=== PATIENT | male | born 1955 | race Caucasian/White ===

== ENCOUNTER 2024-04-27 12:16 | Emergency (ER) | payer MEDICARE, BC ==
--- NOTE | 2024-04-27 12:41 | ED ---
Recheck HPI - General Source: patient, RN notes reviewed Mode of arrival: ambulatory Limitations: no limitations <Chasity Weir - Last Filed: 04/27/24 12:39> <Eloise Boles - Last Filed: 04/28/24 15:54> - General Chief Complaint: Recheck/Abnormal Lab/Rx Stated Complaint: High Blood Sugar Time Seen by Provider: 04/27/24 12:39 - History of Present Illness Initial Comments: Quick Note: This is a 69-year-old male who presents to the emergency department for hyperglycemia. Patient has a history of type 2 diabetes. Does not take insulin. He states that he checks his blood sugar at home on occasions, and when he checked it this morning it was in the 500s. He went to urgent care initially and was advised to come to the emergency department for further evaluation. Denies any history of DKA. Denies any coughing, congestion, chest pain, shortness of breath, nausea, or vomiting. (Chasity Weir) Patient is a 69-year-old woman past medical history type 2 diabetes on metformin and glipizide, hyperglycemia. Patient does not take insulin. He recently moved from [place]. Saw his PCP few months ago without issue. This morning checked his blood glucose and it read "high". Went to local urgent care where it read in the 500s. Was sent to the emergency department for further evaluation. Patient denies any chest pain, shortness of breath, fevers, chills, nausea, vomiting, abdominal pain, dizziness, lightheadedness, palpitations. He does state that over the last week he has been eating more fruit than usual and ate a lot of fruit this morning. (Eloise Boles) - Related Data Home Medications Medication Instructions Recorded Confirmed Aspirin EC [Ecotrin Low Dose] 81 mg PO DAILY 04/27/24 04/27/24 Cholecalciferol [Vitamin D3 (25 25 mcg PO DAILY 04/27/24 04/27/24 Mcg = 1000 Iu)] Cyanocobalamin (Vitamin B-12) 1,000 mcg PO DAILY 04/27/24 04/27/24 [Vitamin B-12] Diclofenac Sodium [Voltaren] 75 mg PO BID 04/27/24 04/27/24 Garlic Extract [Garlic] 400 mg PO DAILY 04/27/24 04/27/24 Rosuvastatin Calcium [Crestor] 5 mg PO DAILY 04/27/24 04/27/24 Umeclidinium Brm/Vilanterol Tr 1 puff INHALATION RT-DAILY 04/27/24 04/27/24 [Anoro Ellipta 62.5-25 Mcg INH] glipiZIDE [Glucotrol] 10 mg PO BID 04/27/24 04/27/24 lisinopriL [Zestril] 2.5 mg PO DAILY 04/27/24 04/27/24 metFORMIN HCL [Glucophage] 1,000 mg PO BID 04/27/24 04/27/24 Allergies Allergy/AdvReac Type Severity Reaction Status Date / Time No Known Allergies Allergy Verified 04/27/24 15:02 Review of Systems ROS Other: All systems not noted in ROS Statement are negative. <Chasity Weir - Last Filed: 04/27/24 12:39> ROS Statement: Those systems with pertinent positive or pertinent negative responses have been documented in the HPI. General Exam <Chasity Weir - Last Filed: 04/27/24 12:39> <Eloise Boles - Last Filed: 04/28/24 15:54> - General Exam Comments Initial Comments: Visual Physical Exam Vital signs reviewed General: Well-appearing, nontoxic, no acute distress. Head: Normocephalic, atraumatic Eyes: PERRLA, EOMI ENT: Airway patent Chest: Nonlabored breathing Skin: No visual rash, normal skin tone Neuro: Alert and oriented 3 Musculoskeletal: No gross abnormalities (Chasity Weir) PE: CONSTITUTIONAL: No apparent distress, well appearing SKIN: Warm, dry, no jaundice, hives or petechiae EYES: Pupils are equally round, extraocular movements intact without nystagmus, clear conjunctiva, non-icteric sclera HENT: Normocephalic, atraumatic, moist mucus membranes, oropharynx clear without exudates NECK: , Full range of motion, normal appearance, no masses, no lymphadenopathy PULMONARY: Clear to auscultation without wheezes, rhonchi, or rales, normal excursion, no accessory muscle use and no stridor CARDIOVASCULAR: Regular rate, rhythm, normal S1 and S2. No appreciated murmurs, rubs or gallops. Strong radial pulses with intact distal perfusion. No lower extremity edema GASTROINTESTINAL: Soft, non-tender, non-distended, no palpable masses, no rebound or guarding. No hepatosplenomegaly MUSCULOSKELETAL: Extremities have no gross deformity, no edema, redness, or swelling. No calf swelling. NEUROLOGIC:_a/o x 3, GCS 15, normal mentation and speech. Moves all extremities x 4 without motor or sensory deficit PSYCHIATRIC:_normal mood and affect, thought process is clear and linear (Eloise Boles) Course Vital Signs 04/27/24 04/27/24 04/27/24 12:56 14:12 16:55 Temperature 98.4 F 98.0 F Pulse Rate 85 86 73 Respiratory 16 18 18 Rate Blood Pressure 110/69 107/66 111/71 O2 Sat by Pulse 98 98 96 Oximetry Medical Decision Making <Chasity Weir - Last Filed: 04/27/24 12:39> - Lab Data Result diagrams: 04/27/24 12:58 04/27/24 12:58 <Eloise Boles - Last Filed: 04/28/24 15:54> - Medical Decision Making I performed the QuickNote portion of this chart. Signed Chasity Weir PA-C. (Chasity Weir) Was pt. sent in by a medical professional or institution ([facility], [employer] [employer], urgent care, hospital, or residential...) When possible be specific @ -No Did you speak to anyone other than the patient for history (EMS, parent, family, police, friend...)? What history was obtained from this source @ -No Did you review nursing and triage notes (agree or disagree)? Why? @ -I reviewed and agree with nursing and triage notes-Reviewed triage note, patient came from clinic with hyperglycemia blood glucose 443, no other symptoms , no shortness of breath, skin warm and dry with cap refill brisk vital signs within normal limit Were old charts reviewed (outside hosp., previous admission, EMS record, old EKG, old radiological studies, urgent care reports/EKG's, residential records)? Report findings @ -No old charts available to review Differential Diagnosis (chest pain, altered mental status, abdominal pain women, abdominal pain men, vaginal bleeding, weakness, fever, dyspnea, syncope, headache, dizziness, GI bleed, back pain, seizure, CVA, palpatations, mental health, musculoskeletal)? @ -Differential diagnosis remains broad however top considerations include hyperglycemia secondary to uncontrolled diabetes, DKA, HHS, this is not meant to be an all-inclusive list EKG interpreted by me (3pts min.). Sinus rhythm, heart rate 76 bpm, normal intervals, borderline left axis deviation, right bundle branch block, T wave inversions V1, no ST elevation or ST depression X-rays interpreted by me (1pt min.). @ -None done CT interpreted by me (1pt min.). @ -None done U/S interpreted by me (1pt. min.). @ -None done What testing was considered but not performed or refused? (CT, X-rays, U/S, labs)? Why? @ -None What meds were considered but not given or refused? Why? @ -None Did you discuss the management of the patient with other professionals (professionals i.e. , PA, [employer], lab, RT, psych nurse, psychiatric social worker supervisor, journeyman machinist, teacher, business enterprise officer, skilled nursing case manager)? Give summary @ -No Was smoking cessation discussed for >3mins.? @ -No Was critical care preformed (if so, how long)? @ -No Were there social determinants of health that impacted care today? How? (Homelessness, low income, unemployed, alcoholism, drug addiction, transportation, low edu. Level, literacy, decrease access to med. care, residential, rehab)? @ -Decreased access to medical care, patient recently moved from [place], does not have a primary care provider at this point Was there de-escalation of care discussed even if they declined (Discuss DNR or withdrawal of care, Hospice)? DNR status @ -No What co-morbidities impacted this encounter? (DM, HTN, Smoking, COPD, CAD, Cancer, CVA, ARF, Chemo, Hep., AIDS, mental health diagnosis, sleep apnea, mor bid obesity)? @ -DM Was patient admitted / discharged? Hospital course, mention meds given and route , prescriptions, significant lab abnormalities, going to OR and other pertinent info. @ -Hospital course Patient discharged- Patient is a pleasant 69 y/o gentleman presenting today for hyperglycemia. Patient sent from urgent care. On my assessment patient is well-appearing and in no acute distress. Mucous membranes are moist. Lungs are clear to auscultation bilaterally, normal S1-S2 on cardiac exam, abdomen is soft and nontender. Basic labs ordered by triage provider, blood acetone negative, no anion gap, VBG was added, patient does not have signs of acidosis on VBG. No ketonuria. Potassium was on the upper limit of normal 5.1 so EKG was obtained which did not show any changes consistent with hyperkalemia. Blood glucose on arrival in the 400s. Patient was given 2 L IV fluids and 5 units subcu insulin. Blood glucose decreased to 291. Patient had about 500 cc IV fluids left how ever requested discharge. He is comfortable appearing at this point and stable for discharge. Encourage patient drink plenty of nonsugar containing fluids on return home. Patient was given list of primary care providers in the area so we could obtain close follow-up for further management of diabetes. We discussed signs and symptoms warranting return to the ER In my medical judgment there is currently no evidence of an immediate life- threatening or surgical condition. Discharge is therefore indicated at this time. Discharge treatment instructions, follow up instructions, and appropriate emergency department return precautions were discussed with the patient and/or medical decision maker. Patient and/or medical decision maker expressed understanding of and agreed with the treatment plan, follow up instructions, and emergency department return precaution. All patient's and/or medical decision maker's questions were answered. The patient was advised that a small risk still exists that a serious condition could develop and was therefore instructed to return to the ED for any changes in symptoms, persistent symptoms, inability to obtain proper follow-up or for any further concerns. Patient received verbal and written instructions for this condition. Undiagnosed new problem with uncertain prognosis? @ -No Drug Therapy requiring intensive monitoring for toxicity (Heparin, Nitro, Insulin, Cardizem)? @ -No Were any procedures done? @ -No Diagnosis/symptom? @ -hyperglycemia Acute, or Chronic, or Acute on Chronic? @ -Acute Uncomplicated (without systemic symptoms) or Complicated (systemic symptoms)? @ -Complicated Side effects of treatment? @ -No Exacerbation, Progression, or Severe Exacerbation? @ -No (Eloise Boles) - Lab Data Lab Results 04/27/24 04/27/24 04/27/24 Range/Units 12:56 12:58 12:58 WBC 5.5 (3.8-10.6) k/uL RBC 4.61 (4.30-5.90) m/uL Hgb 14.8 (13.0-17.5) gm/dL Hct 45.4 (39.0-53.0) % MCV 98.5 (80.0-100.0) fL MCH 32.1 (25.0-35.0) pg MCHC 32.6 (31.0-37.0) g/dL RDW 14.1 (11.5-15.5) % Plt Count 153 (150-450) k/uL MPV 8.3 Neutrophils % 63 % Lymphocytes % 23 % Monocytes % 9 % Eosinophils % 2 % Basophils % 1 % Neutrophils # 3.5 (1.3-7.7) k/uL Lymphocytes # 1.3 (1.0-4.8) k/uL Monocytes # 0.5 (0-1.0) k/uL Eosinophils # 0.1 (0-0.7) k/uL Basophils # 0.1 (0-0.2) k/uL VBG pH (7.31-7.41) VBG pCO2 (37-51) mmHg VBG HCO3 (24-28) mmol/L Sodium (137-145) mmol/L Potassium (3.5-5.1) mmol/L Chloride (98-107) mmol/L Carbon Dioxide (22-30) mmol/L Anion Gap mmol/L BUN (9-20) mg/dL Creatinine (0.66-1.25) mg/dL Est GFR (CKD-EPI)AfAm (>60 ml/min/1.73 sqM) Est GFR (CKD-EPI)NonAf (>60 ml/min/1.73 sqM) Glucose (74-99) mg/dL POC Glucose (mg/dL) 443 H (70-110) mg/dL POC Glu Registered Nurse Nursery ID Mccarley, Rubens Calcium (8.4-10.2) mg/dL Phosphorus (2.5-4.5) mg/dL Magnesium (1.6-2.3) mg/dL Total Bilirubin (0.2-1.3) mg/dL AST (17-59) U/L ALT (4-49) U/L Alkaline Phosphatase (38-126) U/L Total Protein (6.3-8.2) g/dL Albumin (3.5-5.0) g/dL Urine Color Colorless Urine Appearance Clear (Clear) Urine pH 5.0 (5.0-8.0) Ur Specific Herminie 1.024 (1.001-1.035) Urine Protein Negative (Negative) Urine Glucose (UA) 4+ H (Negative) Urine Ketones Negative (Negative) Urine Blood Negative (Negative) Urine Nitrite Negative (Negative) Urine Bilirubin Negative (Negative) Urine Urobilinogen <2.0 (<2.0) mg/dL Ur Leukocyte Esterase Negative (Negative) Acetone, Qual (Negative) 04/27/24 04/27/24 04/27/24 Range/Units 12:58 14:59 16:28 WBC (3.8-10.6) k/uL RBC (4.30-5.90) m/uL Hgb (13.0-17.5) gm/dL Hct (39.0-53.0) % MCV (80.0-100.0) fL MCH (25.0-35.0) pg MCHC (31.0-37.0) g/dL RDW (11.5-15.5) % Plt Count (150-450) k/uL MPV Neutrophils % % Lymphocytes % % Monocytes % % Eosinophils % % Basophils % % Neutrophils # (1.3-7.7) k/uL Lymphocytes # (1.0-4.8) k/uL Monocytes # (0-1.0) k/uL Eosinophils # (0-0.7) k/uL Basophils # (0-0.2) k/uL VBG pH 7.34 (7.31-7.41) VBG pCO2 47 (37-51) mmHg VBG HCO3 25 (24-28) mmol/L Sodium 132 L (137-145) mmol/L Potassium 5.1 (3.5-5.1) mmol/L Chloride 102 (98-107) mmol/L Carbon Dioxide 20 L (22-30) mmol/L Anion Gap 10 mmol/L BUN 36 H (9-20) mg/dL Creatinine 0.84 (0.66-1.25) mg/dL Est GFR (CKD-EPI)AfAm >90 (>60 ml/min/1.73 sqM) Est GFR (CKD-EPI)NonAf >90 (>60 ml/min/1.73 sqM) Glucose 437 H (74-99) mg/dL POC Glucose (mg/dL) 291 H (70-110) mg/dL POC Glu Registered Nurse Nursery ID Lindy Pickett Calcium 9.4 (8.4-10.2) mg/dL Phosphorus 4.5 (2.5-4.5) mg/dL Magnesium 2.2 (1.6-2.3) mg/dL Total Bilirubin 0.5 (0.2-1.3) mg/dL AST 27 (17-59) U/L ALT 30 (4-49) U/L Alkaline Phosphatase 94 (38-126) U/L Total Protein 7.1 (6.3-8.2) g/dL Albumin 4.5 (3.5-5.0) g/dL Urine Color Urine Appearance (Clear) Urine pH (5.0-8.0) Ur Specific Herminie (1.001-1.035) Urine Protein (Negative) Urine Glucose (UA) (Negative) Urine Ketones (Negative) Urine Blood (Negative) Urine Nitrite (Negative) Urine Bilirubin (Negative) Urine Urobilinogen (<2.0) mg/dL Ur Leukocyte Esterase (Negative) Acetone, Qual Negative (Negative) Disposition <Chasity Weir - Last Filed: 04/27/24 12:39> Is patient prescribed a controlled substance at d/c from ED?: No Time of Disposition: 16:43 <Eloise Boles - Last Filed: 04/28/24 15:54> Clinical Impression: Hyperglycemia Disposition: HOME SELF-CARE Condition: Good Instructions (If sedation given, give patient instructions): Diabetic Hyperglycemia (ED) Additional Instructions: Every disease is a spectrum and a small chance still exists that a serious condition could develop, for this reason, please monitor yourself closely for new, changing or worsening symptoms, nausea, vomiting, dizziness, changes in vision, urinating much less or much more than usual, abdominal pain, fever, chest pain, inability to tolerate/keep down fluids or your medications, inability to follow up with outpatient providers as instructed and should you experience these symptoms or should you have any further concerns for your wellbeing please return to the ED or call 911 immediately. Please drink plenty of clear free fluids, please cut back on intake of high carbohydrate foods, including fruit, candies, breads. PLEASE call your primary care physician as soon as possible to arrange / discuss plan for followup appointment. Appointment in the next 1-3 days is strongly encouraged if possible. PLEASE let us know here before you leave if there is anything further we can do to be of any assistance. Take care and feel Better! Referrals: None,Stated [Primary Care Provider] - 1-2 days Forms: Area PCPs
[2024-04-27 12:57] LABS: Glucose,Whole Blood 443 mg/dL (70-110)
[2024-04-27 13:24] LABS: Basophils # (A) 0.1 k/uL (0-0.2); Basophils % (A) 1 %; Eosinophils # (A) 0.1 k/uL (0-0.7); Eosinophils % (A) 2 %; HCT 45.4 % (39.0-53.0); HGB 14.8 gm/dL (13.0-17.5); Lymphocytes # (A) 1.3 k/uL (1.0-4.8); Lymphocytes % (A) 23 %; MCH 32.1 pg (25.0-35.0); MCHC 32.6 g/dL (31.0-37.0); MCV 98.5 fL (80.0-100.0); Mean Platelet Volume 8.3; Monocytes # (A) 0.5 k/uL (0-1.0); Monocytes % (A) 9 %; Neutrophils # (A) 3.5 k/uL (1.3-7.7); Neutrophils % (A) 63 %; Platelet Count 153 k/uL (150-450); RBC 4.61 m/uL (4.30-5.90); RDW 14.1 % (11.5-15.5); WBC 5.5 k/uL (3.8-10.6)
[2024-04-27 13:33] LABS: Appearance,Urine Clear (Clear); Bilirubin,Urine Negative (Negative); Blood,Urine Negative (Negative); Color,Urine Colorless; Glucose,Urine (UA) 4+ (Negative); Ketones,Urine Negative (Negative); Leukocyte Esterase,Urine Negative (Negative); Nitrite,Urine Negative (Negative); Protein,Urine Negative (Negative); Specific Gravity,Urine 1.024 (1.001-1.035); Urobilinogen,Urine <2.0 mg/dL (<2.0)
[2024-04-27 13:35] LABS: ALT 30 U/L (4-49); AST 27 U/L (17-59); African American GFR (CKD) >90 (>60 ml/min/1.73 sqM); Albumin 4.5 g/dL (3.5-5.0); Alkaline Phosphatase 94 U/L (38-126); Anion Gap 10 mmol/L; Blood Urea Nitrogen 36 mg/dL (9-20); Calcium 9.4 mg/dL (8.4-10.2); Carbon Dioxide 20 mmol/L (22-30); Chloride 102 mmol/L (98-107); Glucose 437 mg/dL (74-99); Magnesium 2.2 mg/dL (1.6-2.3); Non-African American GFR(CKD) >90 (>60 ml/min/1.73 sqM); Phosphorus 4.5 mg/dL (2.5-4.5); Potassium 5.1 mmol/L (3.5-5.1); Sodium 132 mmol/L (137-145); Total Bilirubin 0.5 mg/dL (0.2-1.3); Total Protein 7.1 g/dL (6.3-8.2)
[2024-04-27 14:25] VITALS: RESP 18
[2024-04-27] MEDS: INSULIN ASPART (NovoLOG) 100 UNIT/ML VIAL SQ ONE (15:00)
[2024-04-27] MEDS: LACTATED RINGERS 1,000 ML BAG IV STA (15:00)
[2024-04-27 15:21] LABS: VBG PH 7.34 (7.31-7.41)
[2024-04-27 16:31] LABS: Glucose,Whole Blood 291 mg/dL (70-110)
[2024-04-27 16:56] VITALS: BP 111/71; PULSE 73; TEMP 98
== END 2024-04-27 16:57 | disposition home or self-care (01) ==
LOC: EC 12:16
DX: E11.65 Type 2 diabetes mellitus with hyperglycemia (principal); Z79.84 Long term (current) use of oral hypoglycemic drugs
CPT/HCPCS: 36415; 80053; 81003; 82009; 82803; 83735; 84100; 85025; 93005; 96374; 99285